=== PATIENT | female | born 1960 | race Caucasian/White ===

== ENCOUNTER → 2017-02-05 | Outpatient (CLI) | payer OTHER ==
[~2017-02-05] MED LIST: AGM875 PO
--- NOTE | 2017-02-05 16:07 | DIAGNOSTIC IMAGING REPORT ---
RIGHT ANKLE 3 VIEWS HISTORY: ANKLE PAIN Right COMPARISON: None. FINDINGS: There is no fracture or dislocation. Medial soft tissue swelling. No radiopaque foreign bodies. IMPRESSION: No fractures. Electronically signed by: Garrison Parisi M.D. 02/05/2017 4:06 PM Dictated Date/Time: 02/05/2017 4:04 PM
== END | disposition home or self-care (01) ==
LOC: C.RAD1850 15:37
PROVIDERS: ATTEND Nurse Practitioner Family
DX: M25.571 Pain in right ankle and joints of right foot (principal); M79.89 Other specified soft tissue disorders

== ENCOUNTER → 2017-02-27 | Outpatient (CLI) | payer OTHER ==
--- NOTE | 2017-02-27 14:51 | DIAGNOSTIC IMAGING REPORT ---
RIGHT LOWER EXT JOINT WITHOUT CLINICAL HISTORY: 57 years-old Female with acute right ANKLE SPRAIN W/FEELING OF INSTABILITY COMPARISON: ] Radiographs 02/05/2017 TECHNIQUE: Multiplanar, multi sequence MRI of the right ankle was performed without contrast. FINDINGS: LATERAL LIGAMENT COMPLEX: The anterior talofibular ligament is mildly thickened with intermediate T2 signal compatible with chronic sprain. The calcaneofibular ligament is also thickened with intermediate signal compatible with chronic sprain. The posterior talofibular ligament is intact. SYNDESMOTIC LIGAMENTS: The anterior-inferior tibiofibular ligament is diminutive in size compatible with chronic sprain however appears intact. The interosseous membrane and posterior-inferior tibiofibular ligaments are intact. DELTOID LIGAMENT COMPLEX: The superficial and deep components of the deltoid ligament are intact. ANTERIOR TENDONS: The tibialis anterior, extensor hallucis longus and extensor digitorum longus tendons are normal in position, morphology and signal. LATERAL TENDONS: The peroneus longus and brevis tendons are intact. MEDIAL TENDONS: The flexor digitorum longus and flexor hallucis longus tendons are intact. There is an acute high-grade tear of the myotendinous junction tibialis posterior tendon nicely seen on image 8 of the axial series, image 12 of the sagittal series and image 26 of the coronal series with approximately 3.0 cm of retraction. Redundant fibers are noted as well as hemorrhagic material with a small collection measuring 0.9 x 1.2 x 3.0 cm. Additionally, there is a high-grade split tear measuring approximately 3.0 cm of the tibialis posterior tendon along its posterior and inferomalleolar course with markedly thickened tendon which demonstrates intermediate intrasubstance signal. There is a moderate amount of associated surrounding edema and likely reactive tenosynovitis. PLANTAR FASCIA: There is mild thickening of the medial cord plantar fascia suggesting chronic plantar fasciitis. No evidence of acute plantar fasciitis or tear. No evidence of plantar fascial nodules. ACHILLES TENDON: The Achilles tendon is normal in position, morphology and signal. No associated bursitis. SINUS TARSI: There is normal fat signal within the sinus tarsi. The interosseous and cervical ligaments are normal. The navicular-calcaneal (spring) ligament is without acute abnormality. TARSAL TUNNEL: There are no obstructing lesions within the tarsal tunnel. BONE MARROW: Mild amount of bone marrow edema seen along the medial process of the talus, likely reactive. No acute fracture or additional focal bone marrow edema is identified. Moderate amount of soft tissue subcutaneous edema seen about the ankle. There is mild amount of intramuscular edema involving the Proteus brevis tendon which may be posttraumatic. There is a small joint effusion. Moderate amount of fluid is seen within the posterior recess. Only minimal fluid is seen within the retrocalcaneal bursa. IMPRESSION: 1. Acute high-grade tear of the myotendinous junction tibialis posterior tendon with associated 3.0 cm retraction and associated small hematoma with likely reactive tenosynovitis. 2. High-grade split tear of the tibialis posterior tendon measures up to approximately 3 cm in length on a background of severe tendinopathy. 3. Chronic sprains of the anterior talofibular, calcaneal fibular and anteroinferior tibiofibular ligaments. 4. Moderate amount of subcutaneous edema about the ankle with a small joint effusion. The above report was generated using voice recognition software. It may contain grammatical, syntax or spelling errors. Electronically signed by: Huseyin Miller M.D. 02/27/2017 2:49 PM Dictated Date/Time: 02/27/2017 2:25 PM
== END | disposition home or self-care (01) ==
LOC: C.MRIBC 13:43
PROVIDERS: ATTEND Preventive Medicine Occupational Medicine
DX: M25.371 Other instability, right ankle (principal)